=== PATIENT | male | born 1975 | race Caucasian/White ===

== ENCOUNTER 2021-03-10 11:29 | Emergency (ER) | payer BC ==
[~2021-03-10] VITALS: Ht 182.9 cm; Wt 102.1 kg
[2021-03-10 11:43] VITALS: BP 116/82
[2021-03-10 12:00] LABS: Basophils # (auto) 0.1 10 ^3/uL (0-0.2); Basophils % (auto) 1.4 % (0.0-2.0); Eosinophils # (auto) 0.1 10 ^3/uL (0-0.8); Eosinophils % (auto) 1.2 % (0.0-7.0); Hematocrit 44.7 % (41.0-53.0); Hemoglobin 15.9 g/dL (13.5-17.5); Mean Corpuscular Hemoglobin 30.9 pg (28.0-32.0); Mean Corpuscular Hgb Conc. 35.6 g/dL (32.0-36.0); Mean Corpuscular Volume 86.9 fL (80.0-100.0); Monocytes # (auto) 0.5 10 ^3/uL (0-1.3); Monocytes % (auto) 8.1 % (0.0-12.0); Neutrophils # (auto) 3.3 10 ^3/uL (1.6-8.6); Neutrophils % (auto) 56.3 % (37.0-80.0); Nucleated Red Blood Cells % 0.3 %; Platelet Count (auto) 234 10^3/uL (140-450); Red Blood Cells 5.15 10^6/uL (4.5-5.90); Red Cell Distribution Width 13.5 % (11.8-14.3); White Blood Cell 5.9 10^3/uL (4.4-10.8)
[2021-03-10 12:20] LABS: Albumin 4.1 g/dL (3.4-5.0); Blood Urea Nitrogen 13 mg/dL (7-18); Calcium 9.1 mg/dL (8.5-10.1); Chloride 108 mmol/L (98-107); Glucose 96 mg/dL (74-106); Potassium 3.8 mmol/L (3.5-5.1); Sodium 139 mmol/L (136-145)
[2021-03-10 12:23] LABS: Alanine Aminotransferase 65 U/L (16-61); Anion Gap 5 (5-15); Aspartate Aminotransferase 23 U/L (15-37); BUN/Creatinine Ratio 11.1; Carbon Dioxide 26 mmol/L (21-32); GFR African American 86 mL/min; GFR Non-African American 71 mL/min
[2021-03-10 12:29] LABS: Alkaline Phosphatase 66 U/L (45-117); Bilirubin, Total 0.5 mg/dL (0.2-1.0); Total Protein 7.4 g/dL (6.4-8.2)
[2021-03-10 12:47] LABS: Urine Bacteria NONE SEEN /hpf (None Seen); Urine Blood Negative /uL (Negative); Urine Specific Gravity 1.025 (1.001-1.035); Urine WBC 2 /hpf (0 - 3)
== END 2021-03-10 14:42 | disposition home or self-care (01) ==
LOC: ER 11:29
DX: R20.0 Anesthesia of skin (principal); R36.9 Urethral discharge, unspecified
CPT/HCPCS: 36415; 70450; 80053; 81001; 84484; 85025; 93005